=== PATIENT | female | born 1975 ===

== ENCOUNTER 2020-06-14 12:05 | Outpatient (CLI) | payer OTHER ==
[~2020-06-14 12:05] MED LIST: ADVIL MIGRAINE200 MG PO; RELPAX40 MG PO
== END 2020-06-14 12:08 | disposition home or self-care (01) ==
LOC: LAB 12:05
PROVIDERS: ATTEND Urology
DX: Z20.828 Contact with and (suspected) exposure to other viral communicable diseases (principal)

== ENCOUNTER 2020-06-21 17:04 | Outpatient (CLI) | payer OTHER | END 2020-06-21 17:09 | disposition home or self-care (01) | LOC: LAB 17:04 | PROVIDERS: ATTEND Urology | DX: N30.00 Acute cystitis without hematuria (principal) ==

== ENCOUNTER 2020-06-24 14:29 | Outpatient (CLI) | payer OTHER | END 2020-06-24 14:36 | disposition home or self-care (01) | LOC: EKG 14:29 | PROVIDERS: ATTEND Urology | DX: Z01.810 Encounter for preprocedural cardiovascular examination (principal); R07.89 Other chest pain ==

== ENCOUNTER → 2020-06-28 14:41 | Outpatient (CLI) | payer OTHER ==
[~2020-06-28 14:41] MED LIST changes: +FIORICET; +FUSION PLUS CA1 EACH PO; +SEPTRA; +SKYRIZI75 MG/0.83; +TENORMIN50 M1 PO; +TRANXENE T-TAB7.5 MG PO
== END | disposition home or self-care (01) ==
LOC: LAB 14:41
PROVIDERS: ATTEND Urology
DX: N30.00 Acute cystitis without hematuria (principal); N20.1 Calculus of ureter

== ENCOUNTER 2020-07-05 11:30 | Inpatient (IN) | payer OTHER ==
[~2020-07-05] VITALS: Ht 160 cm; Wt 95.3 kg
[~2020-07-05 11:30] MED LIST changes: -FIORICET; -FUSION PLUS CA1 EACH PO; -SEPTRA; -SKYRIZI75 MG/0.83; -TENORMIN50 M1 PO; -TRANXENE T-TAB7.5 MG PO
[2020-07-05] MEDS ORDERED: TENORMIN50 M1 PO (14:44)
[2020-07-05] MEDS ORDERED: SEPTRA (14:44)
[2020-07-05] MEDS ORDERED: FIORICET (14:44)
[2020-07-05] MEDS ORDERED: FUSION PLUS CA1 EACH PO (14:45)
[2020-07-05] MEDS ORDERED: TRANXENE T-TAB7.5 MG PO (14:46)
[2020-07-05] MEDS ORDERED: SKYRIZI75 MG/0.83 (14:46)
== END 2020-07-09 09:47 | disposition home or self-care (01) | DRG 661 ==
LOC: O/R 07-07 09:39 → SURH 07-07 09:39
PROVIDERS: ADMIT Urology; ATTEND Urology
PROC: BT1FZZZ Fluoroscopy of Left Kidney, Ureter and Bladder (ICD-10-PCS; 2020-07-07)
PROC: 0TC14ZZ Extirpation of Matter from Left Kidney, Percutaneous Endoscopic Approach (ICD-10-PCS; principal; 2020-07-07 10:00)
PROC: 30233N1 Transfusion of Nonautologous Red Blood Cells into Peripheral Vein, Percutaneous Approach (ICD-10-PCS; 2020-07-08)
DX: N20.0 Calculus of kidney (principal); Z20.822 Contact with and (suspected) exposure to COVID-19; D64.9 Anemia, unspecified

== ENCOUNTER 2022-10-04 05:19 | Day surgery (SDC) | payer OTHER ==
[~2022-10-04 05:19] MED LIST changes: +FIORICET; +FIORICET PO; +FUSION PLUS CA1 EACH PO; +SEPTRA; +SKYRIZI75 MG/0.83; +TENORMIN50 M1 PO; +TRANXENE T-TAB7.5 MG PO
== END 2022-10-04 11:30 | disposition home or self-care (01) ==
LOC: CIR.AMB 05:19
PROVIDERS: ATTEND Obstetrics & Gynecology
DX: N85.8 Other specified noninflammatory disorders of uterus (principal); Z20.822 Contact with and (suspected) exposure to COVID-19

== ENCOUNTER 2022-10-06 04:31 | Emergency (ER) | payer OTHER ==
[~2022-10-06] VITALS: Ht 160 cm; Wt 90.7 kg
[2022-10-06] MEDS ORDERED: TENORMIN25 MG (04:37)
[2022-10-06] MEDS ORDERED: SKYRIZI150 MG/1 M SQ (04:37)
[2022-10-06] MEDS ORDERED: CEPHALEXIN500 MG PO (08:03)
[2022-10-06] MEDS ORDERED: DOLOGESIC-DF 51 EACH PO (08:03)
== END 2022-10-06 08:15 ==
LOC: ER 04:31
DX: R50.9 Fever, unspecified (principal)

== ENCOUNTER 2023-01-09 07:06 | Outpatient (CLI) | payer OTHER ==
[~2023-01-09 07:06] MED LIST changes: +CEPHALEXIN500 MG PO; +DOLOGESIC-DF 51 EACH PO; +SKYRIZI150 MG/1 M SQ; +TENORMIN25 MG
[2023-01-09 08:30] LABS: HEMATOCRIT 37.7 % (36.0-45.00); HEMOGLOBIN 12.7 g/dL (12.0-15.00); MEAN CELL VOLUME 81.7 fL (80.00-100.00); MEAN CORPUSCULAR HEMOGLOBIN 27.5 pg (27.00-32.0); MEAN CORPUSCULAR HGB CONC 33.7 g/dl (32.0-36.0); PLATELET COUNT 302 K/uL (150-450); RED BLOOD COUNT 4.62 M/uL (4.00-6.00); RED CELL DISTRIBUTION WIDTH 14.7 % (11.5-14.5)
[2023-01-09 09:02] LABS: PH,URINE 5.5; URINE BILIRRUBIN SMALL (NEGATIVE); URINE BLOOD LARGE; URINE GLUCOSE NEGATIVE (NEGATIVE); URINE LEUKOCYTE MODERATE; URINE NITRATE POSITIVE; URINE PROTEIN 30 (NEGATIVE)
[2023-01-09 09:11] LABS: ALBUMIN 3.3 gm/dL (3.4-5.0); BILIRUBIN TOTAL 0.24 mg/dL (0.3-1.2); CALCIUM 8.7 mg/dL (8.5-10.1); CREATININE SERUM 0.78 mg/dL (0.55-1.02); GFR 79.16; GLOBULINA 4.1 G/DL (2.4-3.5); POTASSIUM 3.72 mEq/L (3.5-5.1); T4 FREE 0.92 NG/ML (0.76-1.46); TOTAL PROTEIN 7.4 gm/dL (6.4-8.2); TSH 2.33 uIU/mL (0.358-3.74)
[2023-01-09 09:40] LABS: URINE APPEARANCE TURBID; URINE COLOR RED
[2023-01-09 09:41] LABS: URINE BACTERIA SOME; URINE EPITHELIAL CELLS 0-4 /HPF; URINE RBC LOADED /HPF; URINE WBC 0-2 /hpf
== END 2023-01-09 13:18 | disposition home or self-care (01) ==
LOC: LAB 07:06
PROVIDERS: ATTEND Obstetrics & Gynecology
DX: N91.1 Secondary amenorrhea (principal); N30.00 Acute cystitis without hematuria; Z88.5 Allergy status to narcotic agent